=== PATIENT | female | born 1985 | race Hispanic/Latino ===

== ENCOUNTER 2021-05-10 11:28 | Emergency (ER) | payer SELFPAY ==
[2021-05-10 12:32] LABS: Absolute Lymphocytes (CBC) 1.9 K/uL (0.7-4.9); Hematocrit 35.5 % (36.0-45.0); Lymphocytes % 21.7 % (15.3-44.8); MPV 9.1 fL (7.6-11.3); RBC Red Blood Cell Count 3.88 M/uL (3.86-4.86)
--- NOTE | 2021-05-10 13:09 | RAD REPORT ---
EXAM DESCRIPTION: US - OB Limited - 05/10/2021 12:51 pm CLINICAL HISTORY: ABD CRAMPING, age. COMPARISON: No comparisons FINDINGS: A single cephalic presenting gestation is identified. Heart rate normal. The cervix is tennille sed. The intracranial contents and spine are grossly normal. A normal stomach bubble is noted. A nor mal fluid-filled urinary bladder seen without pelviectasis. The cord appears three-vessel. Four -chamber view of the heart is grossly unremarkable for gestational age. No gross abnormalities are id entifiable for gestational age. measurements are as follows: BPD:2.5 Centimeters 14 week 2 day HC:9.4 Centimeters 14 week 2 day AC:7.7 centimeters 14 week 1 day FL:1.1 Centimeters 13 weeks 1 day The estimated gestational age (EGA) is 13 week 5 day with an SAMUEL of11/10/2021. Anterior placenta. No secondary signs of accreta. . No placenta previa. The amniotic fluid index is subjectively normal. The maternal adnexa show no worrisome findings. IMPRESSION: 1. Single, cephalic gestation with an EGA of 13 week 5 day and an SAMUEL of the 11/10/2021. 2. No gross abnormalities are identifiable. 3. Anterior placenta. No previa. 4. Amniotic fluid index issubjectively normal.
[2021-05-10 13:17] LABS: Bicarbonate 26 mmol/L (21-32); Glucose Level 89 mg/dL (74-106); Potassium 3.5 mmol/L (3.5-5.1); Sodium Level 138 mmol/L (136-145)
[2021-05-10 13:31] LABS: BUN Blood Urea Nitrogen 6 mg/dL (7-18)
[2021-05-10 13:33] LABS: HCG, Quantitative 58541 mIU/mL (1-3)
[2021-05-10 14:03] LABS: Urine Blood 1+ (Negative); Urine Glucose Negative (Negative); Urine Protein Negative (Negative); Urine Specific Gravity >=1.030 (1.005-1.030); Urine pH 6.5 (5.0-7.0)
[2021-05-10 14:37] LABS: Urine Bacteria <20 /HPF (<20); Urine Mucus HEAVY /HPF (NONE SEEN); Urine RBC <5 /HPF (NONE SEEN)
--- NOTE | 2021-05-10 14:51 | ER ---
Nurse's Notes [facility] Name: Stephany Kessler Age: 35 yrs Sex: Female : 1985 Arrival Date: 05/10/2021 Time: 11:31 Bed 16 Private MD: Diagnosis: Threatened Presentation: 05/10 11:45 Chief complaint: Patient states: pt presented to ED reporting about 13 weeks dorado and notice some vaginal pink spotting. pt was refer by OBGYN to get checked out from ED. Coronavirus screen: Vaccine status: Patient reports receiving the 2nd dose of the covid vaccine. Ebola Screen: Patient denies travel to an Ebola-affected area in the 21 days before illness onset. Initial Sepsis Screen: Does the patient meet any 2 criteria? No. Patient's initial sepsis screen is negative. Does the patient have a suspected source of infection? No. Patient's initial sepsis screen is negative. Risk Assessment: Do you want to hurt yourself or someone else? Patient reports no desire to harm self or others. Onset of symptoms was May 10, 2021. 11:45 Method Of Arrival: Ambulatory dorado 11:45 Acuity: RACHNA 3 dorado [employer] HEAD: 14:07 LMP 01/14/2021 jg9 Historical: - Allergies: 13:01 No Known Allergies; jg9 - PMHx: 13:00 None; jg9 - Immunization history:: Client reports receiving the 2nd dose of the Covid vaccine, Pneumococcal vaccine status is unknown, Flu vaccine status is unknown. - Social history:: Patient/guardian denies using alcohol, street drugs, The patient lives with family, Smoking status: Patient denies any tobacco usage or history of. - Family history:: not pertinent. Screenin:59 Abuse screen: Denies threats or abuse. Denies injuries from another. Nutritional jg9 screening: No deficits noted. Tuberculosis screening: No symptoms or risk factors identified. Fall Risk None identified. Assessment: 12:08 General: Appears well groomed, well developed, well nourished, Behavior is calm. Pain: jg9 Complains of pain in abdomen Pain radiates to back-lower back Pain currently is 4 out of 10 on a pain scale. Quality of pain is described as crampy, Pain began 2 hours ago. : Reports cramping, lower quadrant(s) lower back vaginal bleeding that is spotty. Vital Signs: 11:45 BP 107 / 76; Pulse 86; Resp 18; Temp 98.5(O); Pulse Ox 100% ; Weight 73.48 kg; Height 5 dorado ft. 3 in. (160.02 cm); 12:00 BP 106 / 63; Pulse 79; Resp 16 S; Pulse Ox 100% on R/A; jg9 13:00 BP 108 / 79; Pulse 62; Resp 17 S; Pulse Ox 100% on R/A; jg9 14:00 BP 110 / 80; Pulse 80; Resp 14 S; Pulse Ox 99% on R/A; jg9 15:15 BP 106 / 68; Pulse 98; Resp 14 S; Pulse Ox 100% ; jg9 11:45 Body Mass Index 28.70 (73.48 kg, 160.02 cm) ED Course: 11:31 Patient arrived in ED. ds1 11:47 Triage completed. 11:53 Abbie Donato MD is Attending Physician. ma2 12:08 Paola Herndon, ENRIQUE is Primary Nurse. jg9 12:18 Inserted saline lock: 20 gauge in right antecubital area, using aseptic technique. mb7 12:51 OB Limited In Process Unspecified. EDPA 13:00 Arm band placed on right wrist. jg9 13:01 Patient has correct armband on for positive identification. Bed in low position. Call jg9 light in reach. 14:06 No apparent distress. Resting quietly. note for work upon discharge. jg9 14:07 Urine Microscopic Only Sent. jg9 14:50 Joe Arambula MD is Referral Physician. ma2 15:24 No provider procedures requiring assistance completed. jg9 15:24 IV discontinued. jg9 Administered Medications: No medications were administered Outcome: 14:50 Discharge ordered by . ma2 15:24 Discharged to home ambulatory. jg9 15:24 Condition: stable 15:24 Discharge instructions given to patient, Instructed on discharge instructions, follow up and referral plans. Demonstrated understanding of instructions, follow-up care, medications, Prescriptions given X 1. 15:26 Patient left the ED. jg9 Signatures: Dispatcher [employer] [facility] Deborah Wooten ds1 Abbie Donato MD MD ma2 [facility] Paola Herndon, RN RN jg9 Renea Martinez RN RN dorado
--- NOTE | 2021-05-10 14:51 | EDPHYS ---
Physician Documentation [facility] Name: Stephany Kessler Age: 35 yrs Sex: Female : 1985 Arrival Date: 05/10/2021 Time: 11:31 Bed 16 Private MD: ED Physician Abbie Donato HPI: 05/10 12:43 This 35 yrs old Female presents to ER via Ambulatory with complaints of Preg ma2 13 wks- Vag Bleed with pain. 12:43 Onset: The symptoms/episode began/occurred gradually, 1 day(s) ago. Associated signs ma2 and symptoms: Pertinent negatives: diarrhea, fever, hematuria, nausea, urinary frequency, vaginal discharge. Severity of symptoms: At their worst the symptoms were mild, in the emergency department the symptoms are unchanged. Patient is 13 weeks , she is G3, P2, she is here because she has mild lower abdominal pain, and she had one episode of pink spot today. One single spot, no active bleeding, patient does not have active pain at this time. [employer]: 14:07 LMP 01/14/2021 jg9 Historical: - Allergies: 13:01 No Known Allergies; jg9 - PMHx: 13:00 None; jg9 - Immunization history:: Client reports receiving the 2nd dose of the Covid vaccine, Pneumococcal vaccine status is unknown, Flu vaccine status is unknown. - Social history:: Patient/guardian denies using alcohol, street drugs, The patient lives with family, Smoking status: Patient denies any tobacco usage or history of. - Family history:: not pertinent. ROS: 12:43 Negative for injury or acute deformity, hematuria, burning with urination, foul ma2 smelling urine, vaginal bleeding, menstrual abnormality, missed period, acute changes. 12:43 Constitutional: Negative for fever, chills, and weight loss. 12:43 All other systems are negative. Exam: 12:43 Constitutional: This is a well developed, well nourished patient who is awake, alert, ma2 and in no acute distress. Head/Face: Normocephalic, atraumatic. Eyes: Pupils equal round and reactive to light, extra-ocular motions intact. Lids and lashes normal. Conjunctiva and sclera are non-icteric and not injected. Cornea within normal limits. Periorbital areas with no swelling, redness, or edema. ENT: Nares patent. No nasal discharge, no septal abnormalities noted. Tympanic membranes are normal and external auditory canals are clear. Oropharynx with no redness, swelling, or masses, exudates, or evidence of obstruction, uvula midline. Mucous membranes moist. Neck: Trachea midline, no thyromegaly or masses palpated, and no cervical lymphadenopathy. Supple, full range of motion without nuchal rigidity, or vertebral point tenderness. No Meningismus. Chest/axilla: Normal chest wall appearance and motion. Nontender with no deformity. No lesions are appreciated. Cardiovascular: Regular rate and rhythm with a normal S1 and S2. No gallops, murmurs, or rubs. Normal PMI, no JVD. No pulse deficits. Respiratory: Lungs have equal breath sounds bilaterally, clear to auscultation and percussion. No rales, rhonchi or wheezes noted. No increased work of breathing, no retractions or nasal flaring. Abdomen/GI: Soft, non-tender, with normal bowel sounds. No distension or tympany. No guarding or rebound. No evidence of tenderness throughout. Back: No spinal tenderness. No costovertebral tenderness. Full range of motion. Skin: Warm, dry with normal turgor. Normal color with no rashes, no lesions, and no evidence of cellulitis. MS/ Extremity: Pulses equal, no cyanosis. Neurovascular intact. Full, normal range of motion. Neuro: Awake and alert, GCS 15, oriented to person, place, time, and situation. Cranial nerves II-XII grossly intact. Motor strength 5/5 in all extremities. Sensory grossly intact. Cerebellar exam normal. Normal gait. Vital Signs: 11:45 BP 107 / 76; Pulse 86; Resp 18; Temp 98.5(O); Pulse Ox 100% ; Weight 73.48 kg; Height 5 dorado ft. 3 in. (160.02 cm); 12:00 BP 106 / 63; Pulse 79; Resp 16 S; Pulse Ox 100% on R/A; jg9 13:00 BP 108 / 79; Pulse 62; Resp 17 S; Pulse Ox 100% on R/A; jg9 14:00 BP 110 / 80; Pulse 80; Resp 14 S; Pulse Ox 99% on R/A; jg9 15:15 BP 106 / 68; Pulse 98; Resp 14 S; Pulse Ox 100% ; jg9 11:45 Body Mass Index 28.70 (73.48 kg, 160.02 cm) dorado MDM: 11:55 Patient medically screened. ma2 14:49 Differential diagnosis: nonspecific abdominal pain, ovarian cyst, urinary tract ma2 infection. Data reviewed: vital signs, nurses notes. Counseling: I had a detailed discussion with the patient and/or guardian regarding: the historical points, exam findings, and any diagnostic results supporting the discharge/admit diagnosis, the presence of at least one elevated blood pressure reading (>120/80) during this emergency department visit, the need for outpatient follow up. Response to treatment: the patient's symptoms have resolved after treatment. 05/10 11:57 Order name: Abo/rh Typing; Complete Time: 13:54 [facility] 05/10 11:57 Order name: Basic Metabolic Panel; Complete Time: 13:54 [facility] 05/10 11:57 Order name: CBC with Diff; Complete Time: 13:24 [facility] 05/10 11:57 Order name: Quantitative Hcg; Complete Time: 13:54 dc05/10 14:03 Order name: Urine Dipstick-Ancillary; Complete Time: 14:35 [facility] 05/10 14:05 Order name: Urine Microscopic Only [facility] [place] 05/10 11:57 Order name: IV Saline Lock; Complete Time: 13:16 dc05/10 11:57 Order name: Labs collected and sent; Complete Time: 13:16 dc05/10 11:57 Order name: NPO; Complete Time: 13:21 [facility] 05/10 11:57 Order name: Urine Dipstick-Ancillary (obtain specimen); Complete Time: 14:04 [facility] 05/10 12:51 Order name: OB Limited; Complete Time: 13:24 [facility] 05/10 14:06 Order name: Urine Microscopic Only; Complete Time: 14:49 [facility] 05/10 14:30 Order name: ABO/RH no charge; Complete Time: 14:35 EDMS Administered Medications: No medications were administered Disposition Summary: 05/10/21 14:50 Discharge Ordered Location: Home ma2 Condition: Stable ma2 Diagnosis - Threatened ma2 Followup: [facility] - With: - When: Tomorrow - Reason: Wound Recheck, If symptoms return Discharge Instructions: - Discharge Summary Sheet ma2 - Vaginal Bleeding During , First Trimester ma2 - Threatened Miscarriage, [id number] ma2 - Activity Restriction During ma2 - Form - Excuse from Work, School, or Physical Activity jg9 - and Urinary Tract Infection ma2 Forms: - Medication Reconciliation Form ma2 - Thank You Letter ma2 - Antibiotic Education ma2 - Prescription Opioid Use ma2 Prescriptions: - Amoxicillin 875 mg Oral Tablet - take 1 tablet by ORAL route every 12 hours for 7 days; 14 tablet; Refills: 0, ma2 Product Selection Permitted Signatures: Dispatcher [employer] EDMS Abbie Donato MD MD ma2 Paola Herndon RN RN jg9 Corrections: (The following items were deleted from the chart) 12:51 11:58 OB Complete+US.RAD.STEVE ordered. EDNV EDMS
[2021-05-10 15:42] VITALS: BP 106/68; O2SAT 100
[2021-05-10 15:43] VITALS: TEMP 98.5
== END 2021-05-10 15:26 | disposition home or self-care (01) ==
LOC: ER 11:28
DX: O20.0 Threatened abortion (principal)
CPT/HCPCS: 36415; 76815; 80048; 81003; 81015; 84702; 85025; 86900; 86901; 99284